=== PATIENT | female | born 1940 | race Caucasian/White ===

== ENCOUNTER 2020-11-29 15:23 | Outpatient (REF) | payer MEDICARE, SELFPAY ==
--- NOTE | ~2020-11-29 | CT_ITS ---
EXAMINATION: CT HEAD WITHOUT CONTRAST CLINICAL INFORMATION: Dementia. COMPARISON: Most recent brain CT dated 08/18/2016 TECHNIQUE: Contiguous axial imaging was performed from the skull base to vertex without intravenous administration of contrast. This CT examination was performed using dose optimization techniques as appropriate, variously including the following: *Automated exposure control *Adjustment of mA and/or kV according to patient size (this includes techniques or standardized protocols for targeted exams where dose is matched to indication/reason for exam; i.e. extremities or head) *Use of iterative reconstruction technique DLP: 658 mGy-cm FINDINGS: There is no evidence of acute intracranial hemorrhage or territorial infarction. No abnormal mass effect or midline shift is seen. Encephalomalacia of the left occipital lobe, new when compared to the prior CT with mild prominence of the adjacent left lateral ventricle posterior horn. 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 Larios to white matter differentiation is well preserved. No extra-axial fluid collections are identified. The ventricles are normal in size. There is no abnormal attenuation within the brain parenchyma. Redemonstration of a probable remote injury within the posterior right occipital cortex. No acute osseous abnormality. Unremarkable soft tissues. The mastoid air cells and visualized portions of the paranasal sinuses are well aerated. CT/CT head/brain wo con IMPRESSION: No acute intracranial hemorrhage or mass effect. There has been interval development of a chronic infarct with associated encephalomalacia within the left occipital lobe when compared to the head CT dated 08/18/2016.
== END 2020-11-29 15:24 | disposition home or self-care (01) ==
LOC: HO.CT 15:23
PROVIDERS: PCP Internal Medicine; Visit Provider Psychiatry & Neurology Neurology
DX: G31.84 Mild cognitive impairment of uncertain or unknown etiology (principal)
CPT/HCPCS: 70450

== ENCOUNTER 2020-12-07 15:59 | Outpatient (REF) | payer MEDICARE, SELFPAY ==
--- NOTE | ~2020-12-07 | XR_ITS ---
EXAMINATION: XR LUMBOSACRAL SPINE WITH OBLIQUES CLINICAL INFORMATION: Lumbar radiculopathy. COMPARISON: None TECHNIQUE: AP, lateral, coned-down, and bilateral oblique views of the lumbosacral spine. FINDINGS: There is loss of anterior vertebral body height at L1 with the anterior vertebral body measuring approximately 1.1 cm in height and the posterior vertebral body measuring approximately 2.3 cm in height. Findings are consistent with an age-indeterminate compression deformity. There is grade 1 anterolisthesis of L5 on S1 measuring approximately 0.7 cm in AP dimension with severe bilateral facet arthropathy at this level. Multilevel loss of intervertebral disc height with endplate osteophytes, most prominent at L5-S1. Atherosclerotic calcifications. Right pelvic surgical clips. XR/XR lumbar spine 4V min IMPRESSION: 1. Age indeterminant compression deformity at the anterior aspect of L1. 2. Grade 1 anterolisthesis of L5 on S1 with degenerative disc disease and severe bilateral facet arthropathy. 3. Additional mild multilevel degenerative disc disease.
== END 2020-12-07 16:00 | disposition home or self-care (01) ==
LOC: HO.XRAY 15:59
PROVIDERS: PCP Internal Medicine; Visit Provider Psychiatry & Neurology Neurology
DX: M54.16 Radiculopathy, lumbar region (principal); S32.009D Unspecified fracture of unspecified lumbar vertebra, subsequent encounter for fracture with routine healing
CPT/HCPCS: 72110

== ENCOUNTER 2025-02-23 13:19 | Outpatient (AMB) | payer MEDICARE, SELFPAY ==
--- NOTE | 2025-02-23 13:22 | MHC.OFFVIS ---
Intake Visit Reasons: MCI Accompanied by: Daughter Allergies lisinopril Allergy (Unknown, Verified 02/23/25 13:27) Unknown Medication List - Last Reconciled 02/23/25 by Johana Pop CNP amlodipine 10 mg PO DAILY donepezil 10 mg PO BEDTIME 90 days hydrochlorothiazide 25 mg PO DAILY memantine 5 mg PO BID 90 days metoprolol succinate ER 50 mg PO DAILY pantoprazole 40 mg PO DAILY sertraline 50 mg PO DAILY simvastatin 20 mg PO BEDTIME HPI Comments Details: She was living with her daughter. Memory was declining some. She was more forgetful and needed more reminders. She would forget that she showered and was showering twice a day. Her daughter got a white board and was writing down when she showered to remind her. Has trouble using TV remote and phone. She had alarm set to reminder to take medications, but she would sometimes ignore it and her daughter would have to remind her. She got THR which apparently went well, but did not remember. She needed to have other hip done at some point. Few minor falls. She could get upset and frustrated at times when she did not remember something or could not do something she used to do. Planning to start working with therapist next month. She enjoys doing word finds. Stopped driving around 2021. Has been living with her youngest daughter, Rose since around 2018. Slow progressive memory loss, especially since around 2019. Forgets appointments, to take medications, and is not as independent. Balance was okay, occasional wobble. Minor sciatica pain. History of lumbar spinal stenosis and sciatica for over 10 years. Short term memory problems. No dizziness on turning, getting up, or looking down. [facility] Medical History (Updated 02/23/25 @ 13:26 by Johana Pop CNP) Lumbar radiculopathy MCI (mild cognitive impairment) Review of Systems Const Denies chills, Denies daytime sleepiness, Denies difficulty sleeping, Denies fatigue, Denies fever(s), Denies frequent falls, Denies headache(s), Denies increased appetite, Denies poor appetite, Denies snoring, Denies weakness, Denies weight gain and Denies weight loss Eyes Denies loss of vision ENT Denies vertigo, Denies dizziness, Denies headache(s) and Denies neck pain Card Denies chest pain at rest, Denies chest pain with activity, Denies syncope, Denies leg edema, Denies palpitations, Denies dyspnea and Denies dyspnea on exertion Resp Denies cough, Denies dyspnea, Denies dyspnea on exertion and Denies snoring GI Denies abdominal pain, Denies constipation, Denies heartburn, Denies diarrhea and Denies nausea Denies urinary frequency, Denies urinary incontinence and Denies urinary urgency Musc Denies abnormal gait, Reports back pain, Denies myalgias, Denies arthralgias, Denies neck pain, Denies numbness and Denies tingling Neuro Denies abnormal gait, Denies vertigo, Denies dizziness, Denies syncope, Denies frequent falls, Denies headache(s), Denies lack of coordination, Denies loss of vision, Reports memory loss, Denies numbness, Denies Other visual disturbances, Denies restless legs, Denies seizure-like activity, Denies tingling, Denies paresthesias, Denies tremor(s) and Denies weakness Psych Denies anxiety, Denies depression, Denies auditory hallucinations, Reports memory loss and Denies visual hallucinations Endo Denies fatigue and Denies palpitations Physical Exam Const Other: General Appearance:? normal, in no acute distress. Heart:? S1, S2 normal, no murmurs. Lungs:? clear anteriorly and posteriorly. Musculoskeletal:? normal. Extremities:? no edema. Psych:? alert, as below. Neuro Other: Abnormal Neurological Findings:?MMSE 21/30. Mental Status: alert, as below. Cranial Nerves: Pupils are equal, round, and reactive to light. External ocular muscles are intact. Visual priest are full, no ptosis. Face is symmetrical, no facial weakness or droop. Facial sensations are normal. Tongue protrudes in midline. Palate elevates symmetrically. Shoulder shrugging is normal Motor Examination: Normal muscle tone, bulk and strength. No atrophy or fasciculations. No drift of the extended upper extremities. DTR 2+. Plantars are flexor. Sensory Exam: Normal light touch, temperature, pinprick, vibration, and joint-position sensations. Rhomberg sign is absent. Coordination: No ataxia. No titubation. Gait Exam: Within normal limits. Cerebellar Signs: [id number] is okay. Extrapyramidal System: No tremor, rigidity with normal facial expressions. No bradykinesia. No bradyphrenia. Normal arm swing and posture. No propulsion or retropulsion. Speech: Normal. MMSE Level of Consciousness: Alert. Orientation: Knows month and season. Does not know correct year, date, or day. Knows correct city, county and state. Knows correct location and floor. Registration: Able to register 3 objects. Attention: Serial 7's performed accurately to 93. Recall: Able to recall 1 out of 3 objects with help. Language: Normal spontaneous speech, fluency, repetition, naming, comprehension, reading, and writing. Total Score: 21/30. Results Reviewed Results Reviewed: 11/10/20 EEG- WNL CT brain shows old left occipital encephalomalacia and probable old right occipital encephalomalacia. Assessment & Plan Assessment & Plan (1) MCI (mild cognitive impairment): Code(s): G31.84 - Mild cognitive impairment of uncertain or unknown etiology Category: Medical Plan: Continue donepezil 10mg 1 tablet at bedtime. Increase memantine 10mg 1 tablet twice a day. Stay physically and socially active. Follow up in 3 months or sooner as needed. Medications: New memantine (Namenda) 10 mg PO BID 180 tabs 1RF 90 days Refilled donepezil 10 mg PO BEDTIME 90 tabs 1RF 90 days Discontinued memantine Discontinued Reason: Doctor's Order 5 mg PO BID 90 days 180 tabs 0RF Coding Level of Care Code Est Pt Level 4 (09178) Diagnoses MCI (mild cognitive impairment) G31.84
--- OUTSIDE RECORDS SUMMARY | 2025-02-23 15:22 | XMS_ITS | Clinical Summary ---
Author Organization [facility] [address] [place] [address] [place] [phone] Phone Care Team Providers Care Ship Rigger Name Role Phone Zoila Gunter MD Primary Care Prov ider Allergies Active Allergy Reactions Criticality Noted Date Comments Gluten Unknown 08/04/2024 Celiac disease Lisinopril 07/17/2018 No reaction documented. Cough Medications donepeziL (ARICEPT) 10 mg tablet Take 1 tablet (10 mg total) by mouth at bedtime. Active calcium carbonate (CALCIUM ORAL) Take by mouth daily. Active multivit-min/fo lic acid/lutein (CENTRUM SILVER ORAL) daily Active acetaminophen (TYLENOL) 500 mg tablet Take 2 tablets (1,000 mg total) by mouth every 8 (eight) hours. 30 tablet 04/04/2024 Active memantine (NAMENDA) 5 mg tablet Take 1 tablet (5 mg total) by mouth 2 (two) times a day. 07/22/2024 Active pantoprazole (PROTONIX) 40 mg EC tablet Take 1 tablet (40 mg total) by mouth 1 (one) time each day before breakfast. Do not crush, chew, or split. 42 tablet 08/05/2024 Active amLODIPine (NORVASC) 10 mg tablet TAKE 1 TABLET BY MOUTH EVERY DAY 90 tablet 1 09/19/2024 Active sertraline (ZOLOFT) 50 mg tablet TAKE 1 TABLET BY MOUTH EVERY DAY 90 tablet 1 12/08/2024 Active simvastatin (ZOCOR) 20 mg tablet TAKE 1 TABLET BY MOUTH EVERYDAY AT BEDTIME 90 tablet 1 12/22/2024 Active hydroCHLOROthia zide (HYDRODIURIL) 25 mg tablet TAKE 1 TABLET BY MOUTH EVERY DAY 90 tablet 1 12/22/2024 Active famotidine (PEPCID) 20 mg tablet TAKE 1 TABLET BY MOUTH TWICE A DAY 180 tablet 1 12/31/2024 Active metoprolol succinate (TOPROL-XL) 50 mg 24 hr tablet TAKE 1 TABLET BY MOUTH EVERY DAY 90 tablet 1 01/05/2025 Active Active Problems Problem Noted Date Diagnosed Date Primary osteoarthritis of left hip 02/05/2025 Medical orders for life-sust aining treatment (MOLST) form in chart 12/15/2024 Overview (12/15/2024): MOLST form completed 12/15/2024 Cardiopulmonary resuscitation - do not resuscitate Ventilation for a patient in respiratory distress - do not intubate or ventilate Transfer to hospital -transfer to hospital Dialysis - undecided Artificial nutrition - undecided Artificial hydration - use artificial hydration Assessment & Plan (12/15/2024 2:01 PM EDT): Confirmed with patient DNR/DNI. Molst form in the chart. S/P total hip arthroplasty 08/04/2024 Adnexal mass 12/18/2022 Overview (01/07/2024): CT ABD & PELVIS W/CONTRAST Result Date: 12/15/2022 IMPRESSION IMPRESSION: 6.2 cm cystic lesion in the right adnexa without solid enhancing components. This corresponds with the finding on MRI. Left 9th and 10th rib fracture deformities which have acute appearance. Associated trace left pleural effusion. Colonic diverticulosis. POS - [id number] Assessment & Plan (12/15/2024 2:01 PM EDT): Right pelvic cyst. Previously referred to [facility] for evaluation but not seen yet. Unable to get an appt. Will place a new referral. Orders: Ambulatory referral to Obstetrics / Gynecology; Future CBC and differential; Future Other chest pain 08/09/2022 Overview (01/07/2024): Last Assessment & Plan: As I noted she has had this discomfort in her chest for quite some time but seems to progressively becoming worse. The exact etiology is not clear. Certain aspects are concerning for ischemic heart disease. Given the fact that her symptoms seem to come on so easily I spoke to her about undergoing a cardiac catheterization. I discussed the indication of the procedure and the procedure itself. I did discuss some, but not all possible findings include likely be no significant coronary disease, coronary disease requiring medical therapy angioplasty or bypass surgery. Also told her that there was no significant coronary disease we will consider a PET stress to exclude microvascular angina. I did discuss some, but not all possible risk including , OR, CVA, damage to artery, arrhythmia infection allergy to the dye. I discussed the alternatives which would be a stress test. I did discuss a regadenoson PET stress but also a treadmill nuclear stress. After some discussion we are going to proceed with nuclear stress test. I did tell her if she had any discomfort lasting over 15 minutes want to call 911. We will hold the metoprolol the day of the test. Shortness of breath on exertion 08/09/2022 Overview (01/07/2024): Last Assessment & Plan: Etiology is unclear. On exam her lungs are clear. She did have an echocardiogram as I noted in November when she was in the hospital at that time her LV systolic function was normal. Did have grade II diastolic dysfunction. There is no mention of the left atrial pressure was increased. Although the estimated PA pressure was normal at rest. She does have valvular disease but nothing that would account for her breathlessness. I did place an order for PFTs. She could have diastolic dysfunction which worsens with exercise as a cause for shortness of breath we will be starting out for a nuclear stress test first to see what that shows. Abnormal EKG 08/07/2022 Snoring 05/02/2019 Overview (01/07/2024): 04/2019 Home Sleep Study did not reveal sleep apnea or nocturnal hypoxia. 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 Patient is compliant with her medications. Currently on amlodipine 10, hydrochlorothiazide 25 mg. No side effects. Will continue same medications. Hyperlipidemia 04/26/2009 Assessment & Plan (12/15/2024 2:01 PM EDT): Currently on Simvastatin, last LDL 61 last year. Will recheck a lipid profile. Continue same medication. MADHU (obstructive sleep apnea) 04/26/2009 Overview (01/07/2024): On CPAP since last year Osteoporosis 04/26/2009 Overview (01/07/2024): History of compression or fracture on the Lumbar Spine Resolved Problems Problem Noted Date Diagnosed Date Resolved Date Primary osteoarthritis of right hip 06/19/2024 08/21/2024 Encounters Date Type Department Care Team Description 02/05/2025 10:30 AM EST Office Visit Orthopedic Surgery [address] [phone] Hernandez Vanegas MD Status post total replacement of right hip (Primary Dx); Postoperative examination; Primary osteoarthritis of left hip; MCI (mild cognitive impairment) with memory loss 01/01/2025 Telephone Adult Medicine [address] [phone] Zoila Gunter MD 12/15/2024 11:30 AM EDT Office Visit Adult Medicine [address] [phone] Zoila Gunter MD Encounter for annual general medical examination with abnormal findings in adult (Primary Dx); Primary hypertension; Mixed hyperlipidemia; Adnexal mass; Skin lesion; Need for prophylactic vaccination and inoculation against influenza; Advance care planning; Medical orders for life-sustaining treatment (MOLST) form in chart 12/15/2024 Results Follow-Up Adult Medicine [address] [phone] Zoila Gunter MD from Last 3 Months Immunizations Immunization Administration Dates Next Due H1N1 Inj Preservative Free 04/26/2009 Influenza trivalent, 0.5mL ( Fluad) 65yo and older 12/15/2024,11/26/2023,11/22/2022,11/02,12/06/2020,12/18/2018,12/12/2017 ,12/12/2015,11/28/2011,11/14/2010,10/28 Influenza trivalent, 0.5mL, preservative free (Fluarix; FluLaval; Fluzone) ages 6mo and older (Afluria) 3 years and older 12/07/2012 Pneumococcal conjugate 13 va lent (Prevnar 13, PCV13) 2mo and older 02/07/2016 Pneumococcal polysaccharide 23 valent (Pneumovax 23) 2yo and older 08/04/2009 Td Tetanus diptheria (Tdvax) 7yo and older 11/22/2022,02/07/2012 Tdap Tetanus diptheria acell ular pertussis (Boostrix; Adacel) 7yo and older 01/03/2006 Zoster Live 08/11/2009 Surgical History Surgery Date Site/Laterality Comments HYSTERECTOMY PROCEDURE: HISTORICAL HYSTERECTOMY APPENDECTOMY 2005 PROCEDURE: HISTORICAL APPENDECTOMY COLONOSCOPY PROCEDURE: IN COLONOSCOPY STOMA DX INCLUDING COLLJ SPEC SPX; COMMENT: normal on 05/12/2008 Dr Rizvi OTHER SURGICAL HISTORY 1994 Left PROCEDURE: RADICAL REMOVAL OF BREAST; COMMENT: for Breast Cancer; 2000 reconstruction CARPAL TUNNEL RELEASE Right PROCEDURE: HISTORICAL CARPAL TUNNEL REL BREAST BIOPSY 1994 Left PROCEDURE: BX BREAST; PERC NEEDLE CORE W/IMAG GUID; COMMENT: lt. breast ca BREAST SURGERY 1994 Left PROCEDURE: IN UNLISTED PROCEDURE BREAST; COMMENT: s/p lt. mast. 1994 TAMOXIFEN X 5 YRS Medical History Medical History Date Comments Hyperlipidemia 04/26/2009 DX:Hyperlipidemi a Dementia (CMS/HCC V24, CMS/HCC V28) 05/24/2009 DX:Dementia (HCC) Chronic low back pain 07/17/2018 DX:Chronic low back pain Vitamin D deficiency 07/17/2018 DX:Vitamin D deficiency DDD (degenerative disc disea se), cervical 07/17/2018 DX:DDD (degenerative disc di sease), cervical CD (celiac disease) 04/26/2009 DX:CD (jewel c disease) Cerebral microvascular disease 11/16/2009 D X:Cerebral microvascular disease Depression 04/26/2009 DX:Depression GERD (gastroesophageal reflu x disease) 04/26/2009 DX:GERD (gastroesophageal re flux disease); COMMENT: The patient is on Nexium AM and Omeprezole PM. Recommended by BOBBY Rizvi. Has had EGD and colonsocopies with Jono. Also has chronic constipation History of breast cancer 04/26/2009 DX:Hist ory of breast cancer; COMMENT: H/o left mastectomy in 1994, Negative lymp nodes. No radiation, no chemotherapy. 5 years of tamoxifen HTN (hypertension) 04/26/2009 DX:HTN (hyper tension) MADHU (obstructive sleep apnea) 04/26/2009 DX :MADHU (obstructive sleep apnea); COMMENT: On CPAP since last year Osteoporosis 04/26/2009 DX:Osteoporosis; COMMENT: History of compression or fracture on the Lumbar Spine Historical Medical DX 09/23/2012 DX:Pulmona ry nodule; COMMENT: Incidental finding on CT of the chest done at [facility] in September 09, 2012. Right middle lobe nodularity was described possibly infectious or inflammatory. No CT angiographic evidence of thoracoabdominal aortic dissection. CT scan was done for the workup of atypical chest discomfort. Spinal stenosis 04/05/2012 DX:Spinal stenos is Memory problem 09/03/2018 DX:Memory proble m Personal history of malignan t neoplasm of breast DX:Personal history of malig nant neoplasm of breast; COMMENT: lt mastectomy 1994 Celiac disease 04/26/2009 DX:Celiac diseas e Spinal stenosis of lumbar re gion with radiculopathy 04/05/2012 DX:Spinal stenosis of lumbar region with radiculopathy Adnexal mass 12/18/2022 DX:Adnexal mass; COMMENT: CT ABD & PELVIS W/CONTRAST Result Date: 12/15/2022 IMPRESSION IMPRESSION: 6.2 cm cystic lesion in the right adnexa without solid enhancing components. This corresponds with the finding on MRI. Left 9th and 10th rib fracture deformities which have acute appearance. Associated trace left pleural effusion. Colonic diverticulosis. POS - [id number] Social History Tobacco Use Types Packs/Day Years Used Date Smoking Tobacco: Never Smokeless Tobacco: Never Tobacco Cessation:Counseling Given: Not Answered Alcohol Use Standard Drinks/Week Comments No 0 (1 standard drink = 0.6 oz pur e alcohol) Housing Instability Answer Date Recorde d Are you worried that in the next 2 months you may not have stable housing? No 12/15/2024 Food Access & Nutrition Answer Date Rec orded Do you have access to a vari ety of food including fruits and vegetables? Yes 12/15/2024 Access to Healthcare Answer Date Record ed Within the last 3 months, ho w many times did you visit the emergency department for your medical care? 0 12/15/2024 Health Literacy Answer Date Recorded How often do you need to hav e someone help you when you read instructions, pamphlets, or other written material from your doctor or pharmacy? Never 12/15/2024 Caregiver: How often do you need to have someone help you when you read instructions, pamphlets, or other written material from your doctor or pharmacy? Not on file 12/15/2024 Financial Risk Answer Date Recorded How hard is it for you to pa y for the very basics like food, housing, medical care, and air conditioning / heating? Not very hard 12/15/2024 Transportation Answer Date Recorded Has the lack of transportati on kept you from meetings, work, or from getting things needed for daily living? No Has the lack of transportati on kept you from medical appointments or from getting medications? No 12/15/2024 Social Isolation Answer Date Recorded How often do you feel lonely or isolated from those around you? Sometimes 12/15/2024 Food Risk Answer Date Recorded Within the past 12 months we worried whether our food would run out before we got money to buy more. Never true 12/15/2024 Within the past 12 months th e food we bought just didn't last and we didn't have money to get more. Never true 12/15/2024 Dependent Care Answer Date Recorded Do you need help finding or paying for care for your loved ones. For example, child care attendant school or elderly care for an older adult? No 12/15/2024 Education Answer Date Recorded Do you think completing more education or training, like finishing a GED, going to college, or learning a trade, would be helpful for you? N/A 12/15/2024 Employment and Income Answer Date Recor ded During the last four weeks, have you been actively looking for work? No 12/15/2024 Living Situation Answer Date Recorded What is your living situation? Unrecognized valu e 12/15/2024 Interpersonal Safety Answer Date Record ed Physical Abuse Unrecognized value 09/02/2024 Verbal Abuse Unrecognized value 09/02/2024 Comments No Sex and Gender Information Value Date Recorded Sex Assigned at Not on file Legal Sex Female 8:35 AM EST Gender Identity Not on file Sexual Orientation Not on file Last Filed Vital Signs Vital Sign Reading Time Taken Comments Blood Pressure 108/50 12/15/2024 11:31 AM EDT Pulse 55 12/15/2024 11:31 AM EDT Temperature 36.7 C (98.1 F) 12/15/2024 11:31 AM EDT Respiratory Rate 14 12/15/2024 11:31 AM EDT Oxygen Saturation 95% 12/15/2024 11:31 AM EDT Inhaled Oxygen Concentration - - Weight 50.4 kg (111 lb 3.2 oz) 12/15/2024 11:31 AM EDT Height 144.8 cm (4' 9 ) 12/15/2024 11:31 AM EDT Body Mass Index 24.06 12/15/2024 11:31 AM EDT Plan of Treatment Upcoming Encounters Date Type Department Care Team (Late st Contact Info) Description 06/15/2025 1:00 PM EDT Office Visit Adult Medicine [address] [phone] Leena Martin PA [address] [place], [place] 08/06/2025 11:00 AM EDT Office Visit Orthopedic Surgery [place] [phone] [phone] Hernandez Vanegas MD [address] [address] Health Maintenance Due Date Last Done Comments Zoster Vaccines (2 of 3) 10/06/2009 08/11/2009 RSV Immunization Adult Patients (1 - 1-dose 75+ series) 2014 Osteoporosis Screening (Bone Density Screening) 02/04/2022 01/31/2019 COVID-19 Vaccine (2024- season) 2024 12/06/2020, 04/23/2020, 04/02/2020 Hypertension/CHF/CAD Annual BMP Blood Test 08/05/2025 08/05/2024, 08/04/2024, 06/23/2024, Additional history exists Falls Risk Assessment 12/15/2025 12/15/2024 , 12/15/2024, 09/02/2024, Additional history exists Medicare Annual Wellness Visit 12/15/2025 12/15/2024, 11/26/2023 Social Influencers of Health Screening 12/15/2025 12/15/2024, 06/12/2024 Cholesterol Screening (Lipid Panel) 11/23/2027 11/22/2022 DTaP,Tdap,and Td Vaccines (4 - Td or Tdap) 11/22/2032 11/22/2022, 02/07/2012, 01/03/2006 Pneumococcal Vaccine: 50+ Years Completed 02/07/2016, 08/04/2009 Depression Screening Completed 12/15/2024 Influenza Vaccine Completed 12/15/2024, , 11/22/2022, Additional history exists HIB Vaccines Aged Out No longer eligi ble based on patient's age to complete this topic HPV Vaccines Aged Out No longer eligi ble based on patient's age to complete this topic Hepatitis A Vaccines Aged Out No long er eligible based on patient's age to complete this topic Hepatitis B Vaccines Aged Out No long er eligible based on patient's age to complete this topic IPV Vaccines Aged Out No longer eligi ble based on patient's age to complete this topic MMR Vaccines Aged Out No longer eligi ble based on patient's age to complete this topic Meningococcal ACWY Vaccine Aged Out N o longer eligible based on patient's age to complete this topic Meningococcal B Vaccine Aged Out No l onger eligible based on patient's age to complete this topic RSV Immunization Patients Under 20 months Aged Out No longer eligible based on patient's age to complete this topic Varicella Vaccines Aged Out No longer eligible based on patient's age to complete this topic Medical Devices Implanted Type Area Floorworker Distributor Device Identifier Shelf Expiration Date Model / Serial / Lot Cement Bone Simplex Full Dose - Sn/A - [id number] Implanted:Qty: 2 on 08/04/2024 by Hernandez Vanegas MD at [facility] Bone Cement Right: Hip [employer] 12/26/2026 6191-1-00 1 / N/A / [id number] Tritanium Cluster Hole Shell 48mm - Sn/A - [id number] Implanted:Qty: 1 on 08/04/2024 by Hernandez Vanegas MD at [facility] Joints Hip Right: Hip [employer] 04/17/2029 702-04-48 D / N/A / [id number] Liner Trident X3 0 Deg 36mm 3.9mm Sz D - Sn/A - [id number] Implanted:Qty: 1 on 08/04/2024 by Hernandez Vanegas MD at [facility] Joints Hip Right: Hip [employer] 03/23/2029 723-00-36 D / N/A / [id number] Lp Hex Screw 6.5x30mm - Sn/A - [id number] Implanted:Qty: 1 on 08/04/2024 by Hernandez Vanegas MD at [facility] [employer]s Hip Right: Hip [employer] 04/03/2029 8691-7350 / N/A / [id number] Lp Hex Screw 6.5x20mm - Sn/A - [id number] Implanted:Qty: 1 on 08/04/2024 by Hernandez Vanegas MD at [facility] Joints Hip Right: Hip [employer] 02/03/2029 [id number] / N/A / [id number] Hip Stm Kumar 127 #2 30/124 - Snone - [id number] Implanted:Qty: 1 on 08/04/2024 by Hernandez Vanegas MD at [facility] Joints Hip Right: Hip [employer] 09/06/2027 9085-6691 D / NONE / [id number] Hip Spacr Distl Univ 9mm - Snone - [id number] Implanted:Qty: 1 on 08/04/2024 by Hernandez Vanegas MD at [facility] Joints Hip Right: Hip [employer] 03/03/2029 [id number] / NONE / [id number] Hip Head Delta Katerine 36mm 0 - Snone - [id number] Implanted:Qty: 1 on 08/04/2024 by Hernandez Vanegas MD at [facility] Joints Hip Right: Hip [employer] 02/09/2029 6570-0-13 6 / NONE / [id number] Procedures Procedure Name Priority Date/Time Associated Diagnosis Comments XR HIP 2-3 VIEWS RIGHT Routine 02/05/2025 10:41 AM EST Postoperative examination Status post total replacement of right hip CBC WITH AUTO DIFFERENTIAL Routine 12/15/2024 12:14 PM EDT Adnexal mass CBC AND DIFFERENTIAL Routine 12/15/2024 12:14 PM EDT Adnexal mass BASIC METABOLIC PANEL Routine 08/05/2024 5:03 AM EDT LIPID PANEL Routine 11/22/2022 DXA BONE DENSITY STUDY 1+ SITS AXIAL SKEL Routine 01/31/2019 2:03 PM EST Age-related osteoporosis without current pathological fracture from Last 3 Months or Most Recently Relevant to Health Maintenance Results * XR Hip 2-3 Views Right (02/05/2025 10:41 AM EST) Anatomical Region Laterality Modality Lower Extremities, Hip Right Computed Radiography Narrative 02/06/2025 5:43 PM EST 3 views of the right hip obtained today including AP pelvis, AP and crosstable lateral hip were reviewed. These show right hybrid total hip replacement with cemented femoral stem and cementless acetabular shell. Implants appear well-fixed and well position. Slight increase in femoral stem and varus compared to prior x-rays, however femur is rotated compared to prior x-rays due to difference in profile of the lesser trochanter. No obvious changes in stem rotation on the crosstable lateral. Left hip does show moderate severe degenerative changes including near complete joint space narrowing, moderate marginal space, subchondral sclerosis. Joint space narrowing has progressed from prior x-rays obtained 06/19/24. us Hernandez Vanegas MD IMG XR PROCEDURES Fin al Result * (ABNORMAL) CBC auto differential (12/15/2024 12:14 PM EDT) WBC 6.7 4.8 - 10.8 K/mcL LAB HEMETOLOGY METHOD 12/15/2024 2:36 PM EDT [facility] RBC 4.50 3.80 - 4.80 M/mcL LAB HEMETOLOGY METHOD 12/15/2024 2:36 PM EDT [facility] Hemoglobin 11.0(L) 11.5 - 16.0 g/dL LAB HEMETOLOGY METHOD 12/15/2024 2:36 PM EDT [facility] Hematocrit 35.7 35.0 - 47.0 % LAB HEMETOLOGY METHOD 12/15/2024 2:36 PM EDT [facility] MCV 79.9 79.0 - 98.0 FL LAB HEMETOLOGY METHOD 12/15/2024 2:36 PM EDT [facility] MCH 24.6(L) 27.0 - 32.0 pcg LAB HEMETOLOGY METHOD 12/15/2024 2:36 PM EDT [facility] MCHC 30.8(L) 32.0 - 37.0 g/dL LAB HEMETOLOGY METHOD 12/15/2024 2:36 PM EDT [facility] RDW 15.5(H) 11.0 - 15.0 % LAB HEMETOLOGY METHOD 12/15/2024 2:36 PM EDT [facility] Platelets 263 130 - 400 K/mcL LAB HEMETOLOGY METHOD 12/15/2024 2:36 PM EDT [facility] MPV 10.7 7.0 - 11.0 FL LAB HEMETOLOGY METHOD 12/15/2024 2:36 PM EDT [facility] NRBC 0.0 <1.0 % LAB HEMETOLOGY METHOD 12/15/2024 2:36 PM EDT [facility] NRBC Absolute 0.00 <0.10 K/mcL LAB HEMETOLOGY METHOD 12/15/2024 2:36 PM EDT [facility] Neutrophils Relative 57.3 % LAB HEMETOLOGY METHOD 12/15/2024 2:36 PM EDT [facility] Lymphocytes Relative 27.8 % LAB HEMETOLOGY METHOD 12/15/2024 2:36 PM EDT [facility] Monocytes Relative 12.7 % [facility] Eosinophils Relative 1.2 % LAB HEMETOLOGY METHOD 12/15/2024 2:36 PM EDT [facility] Basophils Relative 0.7 % LAB HEMETOLOGY METHOD 12/15/2024 2:36 PM EDT [facility] Immature Granulocytes Relative 0.3 % LAB HEMETOLOGY METHOD 12/15/2024 2:36 PM EDT [facility] Neutrophils Absolute 3.84 1.50 - 7.00 K/mcL LAB HEMETOLOGY METHOD 12/15/2024 2:36 PM EDT [facility] Lymphocytes Absolute 1.86 1.00 - 5.00 K/mcL LAB HEMETOLOGY METHOD 12/15/2024 2:36 PM EDT [facility] Monocytes Absolute 0.85 0.20 - 1.00 K/[facility] LAB HEMETOLOGY METHOD 12/15/2024 2:36 PM EDT [facility] Eosinophils Absolute 0.08 0.00 - 0.50 K/[facility] LAB HEMETOLOGY METHOD 12/15/2024 2:36 PM EDT [facility] Basophils Absolute 0.05 0.00 - 0.20 K/[facility] LAB HEMETOLOGY METHOD 12/15/2024 2:36 PM EDT [facility] Immature Granulocytes Absolute 0.02 0.00 - 0.03 K/[facility] LAB HEMETOLOGY METHOD 12/15/2024 2:36 PM EDT [facility] Blood Venous blood specimen / Unknown Venipuncture / Unknown 12/15/2024 12:14 PM EDT 12/15/2024 12:14 PM EDT us Zoila Gunter MD LAB BLOOD ORDERABL ES Final Result [facility] [address] [place] [address], * Basic metabolic panel (08/05/2024 5:03 AM EDT) Sodium 134 133 - 145 mmol/L LAB CHEMISTRY METHOD 08/05/2024 7:30 AM EDT [facility] Potassium 3.5 3.5 - 5.5 mmol/L LAB CHEMISTRY METHOD 08/05/2024 7:30 AM [facility] Chloride 98 96 - 110 mmol/L LAB CHEMISTRY METHOD [facility]/05[facility]24 7[facility] CO2 27 21 - 32 mmol/L LAB CHEMISTRY METHOD 08/05/2024 7:30 AM EDT [facility] Anion Gap 9 3 - 11 LAB CHEMISTRY METHOD 08/05/2024 7:30 AM EDT [facility] Glucose 83 70 - 100 mg/dL LAB CHEMISTRY METHOD 08/05/2024 7:30 AM EDT [facility] BUN 13 5 - 25 mg/dL LAB CHEMISTRY METHOD 08/05/2024 7:30 AM [facility] Creatinine 0.89 0.50 - 1.10 mg/dL LAB CHEMISTRY METHOD 08/05/2024 7:30 AM EDT [facility] eGFR 64 >=60 mL/min/1. 73m2 LAB CHEMISTRY METHOD 08/05/2024 7:30 AM EDT [facility] Comment:Calculation based on the Chronic Kidney Disease Epidemiology Collaboration (CKD-EPI) equation refit without adjustment for race. BUN/Creatinine Ratio 14.6 LAB CHEMISTRY METHOD 08/05/2024 7:30 AM [facility] Calcium 8.8 8.5 - 10.5 mg/dL LAB CHEMISTRY METHOD 08/05/2024 7:30 AM [facility] Blood Venous blood specimen / Unknown Venipuncture / Unknown 08/05/2024 5:03 AM EDT 08/05/2024 6:26 AM EDT Jesika BRIAN LAB BLOOD ORDERABLES Final Resul t [facility] [address] [place] [address], * (ABNORMAL) Lipid panel (11/22/2022) LDL/HDL Ratio 2 0 - 4 Triglycerides 185(A) 0 - 150 mg/dL Cholesterol 174 0 - 200 mg/dL HDL 76 >=40 mg/dL LDL Cholesterol 61 0 - 100 mg/dL Blood Venous blood specimen / Unknown Historical Provider LAB BLOOD ORDERABLES Melania l Result * DXA BONE DENSITY STUDY 1+ SITS AXIAL SKEL (01/31/2019 2:03 PM EST) Anatomical Region Laterality Modality Bone Densitometr y 12/18/2018 2:28 PM EDT Narrative 01/31/2019 2:35 PM EST BONE DENSITY Lumbar Spine T-score is -2.6 (SD relative to 20-29 y/o adult) Z-score is +0.2 (SD relative to age matched peers) This is consistent with osteoporosis by criteria defined by the WHO. Left Hip T-score is -2.2 Z-score is -0.1 This is consistent with osteopenia by criteria defined by the WHO. An L-1 compression deformity is noted on the lateral spline view. Impression: Based on the World Health Organization criteria, Salvatore Cruz should be classified as having osteoporosis. The [facility] Department of Internal Medicine recommends using National Osteoporosis Foundation (NOF) guidelines in treatment decisions related to osteoporosis. NOF guidelines suggest considering treatment for postmenopausal women and men aged 50 or older presenting with the following: History of hip or vertebral fracture. T-score less than or equal to -2.5 (DXA) at the femoral neck, total hip, or spine, after appropriate evaluation to exclude secondary causes. Low bone mass (T-score between -1.0 and -2.5 at the femoral neck or spine) AND a 10-year probability of a hip fracture greater than or equal to 3% OR a 10-year probability of a major osteoporosis-related fracture greater than or equal to 20% based on the [place]-adapted WHO algorithm Please note that all treatment decisions require clinical judgment and consideration of individual patient factors, including patient preferences, co-morbidities, previous drug use, risk factors not captured in the FRAX model (e.g., frailty, falls, vitamin D deficiency, increased bone turnover, interval significant decline in bone density) and possible under- or over-estimation of fracture risk by FRAX. Procedure Note Drew Church - 02/14/2022 BONE DENSITY Lumbar Spine T-score is -2.6 (SD relative to 20-29 y/o adult) Z-score is +0.2 (SD relative to age matched peers) This is consistent with osteoporosis by criteria defined by the WHO. Left Hip T-score is -2.2 Z-score is -0.1 This is consistent with osteopenia by criteria defined by the WHO. An L-1 compression deformity is noted on the lateral spline view. Impression: Based on the World Health Organization criteria, Salvatore Cruz shouldbe classified as having osteoporosis. The [facility] Department of Internal Medicine recommendsusing National Osteoporosis Foundation (NOF) guidelines in treatmentdecisions related to osteoporosis. NOF guidelines suggest consideringtreatment for postmenopausal women and men aged 50 or older presentingwith the following: History of hip or vertebral fracture. T-score less than or equal to -2.5 (DXA) at the femoral neck, total hip,or spine, after appropriate evaluation to exclude secondary causes. Low bone mass (T-score between -1.0 and -2.5 at the femoral neck or spine)AND a 10-year probability of a hip fracture greater than or equal to 3% ORa 10-year probability of a major osteoporosis-related fracture greaterthan or equal to 20% based on the [place]-adapted WHO algorithm Please note that all treatment decisions require clinical judgment andconsideration of individual patient factors, including patientpreferences, co-morbidities, previous drug use, risk factors not capturedin the FRAX model (e.g., frailty, falls, vitamin D deficiency, increasedbone turnover, interval significant decline in bone density) and possibleunder- or over-estimation of fracture risk by FRAX. Leena BRIAN IMG DXA PROCEDURES Final Result from Last 3 Months or Most Recently Relevant to Health Maintenance Insurance [employer] Advance Directives Documents on File Type Date Recorded Patient Casino Floor Supervisor Expl anation Health Care Decision (hx) 12/03/2021 AD RAYMUNDO DIRECTIVE Health Care Decision (hx) 12/03/2021 AD RAYMUNDO DIRECTIVE Health Care Decision (hx) 12/03/2021 AD RAYMUNDO DIRECTIVE Health Care Decision (hx) 12/03/2021 AD RAYMUNDO DIRECTIVE Health Care Decision (hx) 12/03/2021 AD RAYMUNDO DIRECTIVE Health Care Decision (hx) 12/03/2021 AD RAYMUNDO DIRECTIVE Health Care Decision (hx) 12/03/2021 AD RAYMUNDO DIRECTIVE Health Care Decision (hx) 12/03/2021 AD RAYMUNDO DIRECTIVE * No CPR/Do Not Intubate (Latest Code Status on File) Date Activated Date Inactivated Comments 12/15/2024 12:[address] atus was ascertained in the following way: Code status discussion: discussion with patient To update the patient's code status, place a code status order. Do not modify or discontinue any currently active code status orders. * Full Code - Default Date Activated Date Inactivated Comments 08/04/2024 9:10 AM 08/05/2024 2:33 PM This is order is used when code status has not been discussed with the patient, or code status is otherwise unknown/unconfirmed To update the patient's code status, place a code status order. Do not modify or discontinue any currently active code status orders. Care Teams Ship Rigger Relationship Specialty Start Date End Date Zoila Gunter MD [address] [place] [phone] PCP - General Internal Medicine 09/26/21
--- OUTSIDE RECORDS SUMMARY | 2025-02-23 15:22 | XMS_ITS | Clinical Summary ---
Author Organization [facility] Prior to 07/26/[address] [place] [address] Care Team Providers Care Air Export Agent Name Role Phone Zoila Dejesus MD Primary Care Prov ider Allergies Active Allergy Reactions Criticality Noted Date Comments Lisinopril 12/14/2022 Cough Medications Medication Sig Dispensed Refills Start Date End Date Status simvastatin (ZOCOR) tablet 20 mg Take 1 tablet (20 mg total) by mouth every night at bedtime. 0 Active amLODIPine (NORVASC) tablet 5 mg Take 1 tablet (5 mg total) by mouth daily. 0 Active donepezil (ARICEPT) 10 MG tablet Take 1 tablet (10 mg total) by mouth every night at bedtime. 0 Active sertraline (ZOLOFT) 50 MG tablet Take 1 tablet (50 mg total) by mouth daily. 0 Active hydroCHLOROthiazide (HYDRODIURIL) tablet 25 mg Take 1 tablet (25 mg total) by mouth daily. 0 Active metoprolol succinate (TOPROL-XL) 24 hr tablet 50 mg Take 1 tablet (50 mg total) by mouth daily. 0 Active Active Problems No known active problems Family History Relation Name Status Comments Father Mother Social History Tobacco Use Types Packs/Day Years Used Date Smoking Tobacco: Never Smokeless Tobacco: Never Tobacco Cessation:Counseling Given: Not Answered Alcohol Use Standard Drinks/Week Comments Never 0 (1 standard drink = 0.6 oz pur e alcohol) Sex and Gender Information Value Date Recorded Sex Assigned at Not on file Gender Identity Not on file Sexual Orientation Not on file Job Start Date Occupation Industry Not on file Not on file Not on file Last Filed Vital Signs Vital Sign Reading Time Taken Comments Blood Pressure 146/46 01/04/2023 2:15 PM EST Pulse 53 01/04/2023 2:15 PM EST Temperature 36.7 C (98 F) 01/04/2023 2:15 PM EST Respiratory Rate - - Oxygen Saturation 98% 01/04/2023 2:15 PM EST Inhaled Oxygen Concentration - - Weight 49.7 kg (109 lb 9.6 oz) 01/04/2023 2:15 P M EST Height 148.6 cm (4' 10.5 ) 01/04/2023 2:15 PM ES T Body Mass Index 22.52 01/04/2023 2:15 PM EST Plan of Treatment Health Maintenance Due Date Last Done Comments Depression Screening 1951 Preventative Health Evaluation 1957 Shingrix-Zoster Vaccine (1 of 2) 1989 Fall Risk Assessment 2004 Osteoporosis Screening (DEXA Scan) 2004 RSV Adult > 60+ Yrs or (1 - 1-dose 75+ series) 2014 DTap / Tdap / Td (2 - Td or Tdap) 01/04/2016 01/03/2006 COVID-19 Vaccine (2024- season) 2024 12/06/2020, 04/23/2020, 04/02/2020 Influenza Vaccine (#1) 2024 3, 11/02/2021, 12/06/2020, Additional history exists Pneumococcal Vaccine Completed 02/07/2016, 08/05/19 10 Hepatitis B Vaccines Aged Out No long er eligible based on patient's age to complete this topic RSV Ped < 20 months Aged Out No longe r eligible based on patient's age to complete this topic Care Teams Air Export Agent Relationship Specialty Start Date End Date Zoila Dejesus MD [address] [place] [id number] PCP - General Internal Medicine 12/08/22
--- OUTSIDE RECORDS SUMMARY | 2025-02-23 15:22 | XMS_ITS | Data Portability ---
Author Organization [facility], PAIN OFFICE Address [address] [place] [address] Care Team Providers Care Sales Effectiveness Manager Name Role Phone SYDNEELILIANA Primary Care Provider [phone] Assessment Encounter Date Assessment Date Assessment LastModified by Organization Details LastModified Time 10/12/2015 10/12/2015 Bernadette dyson is a 75 year old woman with low back pain radiating occasionally into the right lower extremity. On exam ,she has pain on flexion. MRI Lumbar spine shows moderate L1 compression fracture, and multilevel degenerative changes of the lumbar spine, with spinal canal and neuroforaminal narrowing . Trial of Lumbar epidural steroid injections under fluroscopic guidance was recommended. The risks and benefits of the procedure were discussed in detail. She wishes to proceed. She is doing well after an oral steroid dose pack and currently has minimal pain, She will call for an appointment. She needs a local company intermodal truck driver on the day of the procedure. [email or web address] Not available 10/13/2015 20:39:53 Plan of Treatment Reminders Order Date Submit Date Provider Last Modified By Organization Details Last Modified Time Details Appointments None record ed. Lab None record ed. Referral None record ed. Procedures None record ed. Surgeries None record ed. Imaging None record ed. Medication Orders None record ed. Patient TargetsNo targets recorded. Patient Instructions Encounter Date Encounter Id Patient Instructions Last Modified By Organization Details Last Modified Time 10/12/2015 [id number] She was advised against bed rest lasting longer than four days and to continue activities as tolerated. [email or web address] Not available 10/12/2015 11:39:01 Reason for Referral None Reported. Problems Name Problem SNOMED Code Status Onset Date Resolution Date Notes Provider Name and Address Organization Details Recorded Time Spinal stenosis of lumbar region 24975540 Active Wilman quan MD [address] , [address], [place], [address], [place] [facility] 6 20:39:53 Displacement of lumbar intervertebral disc without myelopathy 78760359 Active Wilman quan MD [address] [facility] , [address], [facility] [place], [address], [place] [facility] 6 20:39:53 Lumbosacral spondylosis without myelopathy 86530207 Active Wilman quan MD [address] [facility] , [address], [facility] [place], [address], [place] [facility] 6 20:39:53 Lumbosacral radiculitis 49083104 Active Wilman quan MD [address] [facility] , [address], [facility] [place], [address], [place] [facility] 6 20:39:53 Problem Notes None recorded. Procedures Surgical History Date Name Laterality Status Provider Name and Address Organization Details Recorded Time Cancer Surgery completed Mirta Bejarano A - [facility] 10/12/2015 10:42:21 Hysterectomy completed Mirta Pavon [place] - [facility] 10/12/2015 10:42:21 Appendectomy completed Mirta Pavon [place] - [facility] 10/12/2015 10:42:21 Cataract Surgery completed Mirta Pavon [place] - [facility] 10/12/2015 10:42:21 Carpal tunnel release completed Mirta Pavon [place] - [facility] 10/12/2015 10:42:21 Imaging Results None recorded. Procedure Notes None recorded. Medical Equipment None Reported. Allergies Allergen ID Allergen Name Allergen Category Reaction Reaction Severity Criticality Documentation Date Start Date Code Code System Note Provider Name and Address Organization Details Recorded Time 20820 lisinopri l medicatio n cough Not available Not available 10/12/2015 79054 RxNorm Mirta hawkins [place] - [facility] 6 10:42:21 Medications Name Sig Start Date Stop Date Status Note LastModified by Organization Details LastModified Time polyethylene glycol 3350 17 gram oral powder packet Take 1 packet every day by oral route. active Not Available Not Available No t Available chlorthalidone 25 mg tablet Take 1 tablet every day by oral route. active Not Available Not Available No t Available amlodipine 5 mg tablet Take 1 tablet every day by oral route. active Not Available Not Available No t Available tramadol 50 mg tablet Take 1 tablet every 6 hours by oral route. active Not Available Not Available No t Available citalopram 20 mg tablet Take 1 tablet every day by oral route. active Not Available Not Available No t Available simvastatin 20 mg tablet Take 1 tablet every day by oral route. active Not Available Not Available No t Available nortriptyline 10 mg capsule daily active Not Available Not Availabl e Not Available raloxifene 60 mg tablet Take 1 tablet every day by oral route. active Not Available Not Available No t Available ranitidine 150 mg capsule Take 1 capsule twice a day by oral route. active Not Available Not Available No t Available hydrochlorothia zide 25 mg tablet Take 1 tablet every day by oral route. active Not Available Not Available No t Available atenolol 50 mg tablet Take 1 tablet every day by oral route. active Not Available Not Available No t Available Asprin Ec Low Dose 81 mg tablet,delayed release Take 1 tablet every day by oral route. active Not Available Not Available No t Available folic acid active Not Available Not Av ailable Not Available potassium 10 meq daily active Not Available Not Available No t Available Stool Softener active Not Available No t Available Not Available Centrum Silver active Not Available No t Available Not Available Calcium 600 + D(3) 3 tabs daily active Not Available Not Available No t Available Vitals Date Recorded Body mass index (BMI) Body height Oxygen saturation Body weight Heart rate Systolic And Diastolic Provider Name and Address Organization Details Last Updated DateTime 6 21.9 kg/m2 147.32 cm 99 % 81064.1 9885 g 63 /min 159/71 mm[Hg] Mirta Pavon [place] - [facility] 6 10:42:21 Social History Question Answer Notes LastModified by Organizat ion Details LastModified Time Tobacco Smoking Status Never Smoker Not Available [employer] 12/12/2019 03:16:10 Which Illicit Or Recreational Drugs Have You Used? No [id number] Information not available 12/12/2019 Education 12 Information no t available 10/12/2015 Live Alone Or With Others? Alone Information not available 10/12/2015 Marital Status Informatio n not available 10/12/2015 Sex: Unknown Functional Status Question Answer Note LastModified by Organization D etails LastModified Time What is your level of alcohol consumption? None [id number] Information not available 12/12/2019 Are you currently employed? No [id number] Information not available 12/12/2019 Mental Status None recorded. Family History Relationship Description Onset Age of this Age Resolved Age Notes LastModified by Organization Details LastModified Time Father Diabetes mellitus [email or web address] Not available 09/26 11:30:49 Medical History Condition Response Headache Y Cancer Y Arthritis Y Hypertension Y High Cholesterol Y Gynecological HistoryNo gynecological history recorded. Obstetrics History GPAL:G 0 P 0 0 0 0 Past Encounters Encounter ID Performer Location Encounter Start Date Encounter Closed Date Diagnosis/Indication Diagnosis SNOMED-CT Code Diagnosis ICD10 Code Diagnosis IMO Codes Diagnosis Note [id number] Wilman Morris MD PAIN OFFICE [address] [place] [phone] 10/12/2015 10:14:36 10/12/2015 11:39:26 Displacement of lumbar intervertebral disc without myelopathy 03283630 M51.26 Lumbosacra l radiculitis 22389463 M54.17 Lumbosacra l spondylosis without myelopathy 88994375 M47.817 Spinal cuong nosis of lumbar region 24874889 M48.06 Health Concerns Section Related Observation LastModified by Organization Detai ls LastModified Time None Recorded Concern Status LastModified by Organization Details LastModified Time None Recorded Advance Directives Directive None Recorded Payers Insurance Date Sequence Insurance Name Policy Number Policy Crane Covered Member ID Crane Member ID Guarantor Name 10/12/2015 1 [facility] (MEDICARE - MEDICAID REPLACEMENT) Bernadette Cruz [id number] Bernadette Cruz 10/12/2015 1 [facility] - MEDICARE PREFERRED (MEDICARE REPLACEMENT HMO) [id number] Bernadette Cruz [id number] Bernadette Cruz Notes Date Note Type Note Provider Name and Address Organization Details Recorded Time 6 text/html Pain Management L-spineReported by PatientHPIFor quality, patient reportsthrobbing,numbess ,burning,aching,sharp, andtingling(she describes the pain as starting in her low back and then primarily in her right leg . the pain in her leg was burning in nature and associated with numbness and tingling. her pcp started her on a medrol dose pack and she states she has no pain today.). For associated symptoms, patient reportsnumbnessbut reportsno weakness,no bladder compromise, andno bowel compromise. For severity, patient reportsimproving,current pain level 0-1/10, andworst pain 8/10. For duration, patient reportsconstant. For onset/timing, patient reportschronic. For context, patient reportslifting. For alleviating factors, patient reportsrestandlying down. For aggravating factors, patient reportsstandingandwalkin g(history of neuroclaudication is present.). For radiation, patient reportsright le. For work related, patient reportsno. For adl (activities of daily living), patient reportswalking,sweeping, andmopping(she lives in her condo and has a stair lift.). For prior imaging, patient reportsmri. For prior emg, patient reportsnone. For previous surgery, patient reportsnone. For previous pt, patient reportsdid not help. For previous career development coordinator, patient reportsnone. For location, (bernadette cruz is a 75 year old woman with complaints of low back pain radiating into right lower extremity. she has herb having low back pain since . she had a recent exacerbation 3-4 months ago. she feels she was carrying soil for her garden which may have caused the reoccurence of her pain.). For previous injections, (she states she had an injection with dr. armando and feels it did not help her.). She is doing a home exercise exercise program. She had good response to oral steroids. She states she had a fall in 2011 and sustained a compression fracture of L1 vertebra. Wilman Morris MD [address] [place] [address] , [address], [place], [address], [place] [facility] 10/18/2015 15:31:24 OBGyn Episode No OBEpisode recorded.
--- OUTSIDE RECORDS SUMMARY | 2025-02-23 15:22 | XMS_ITS | Encounter Summary ---
Author Organization [facility] [place] [address] Care Team Providers Care Search Strategist Name Role Phone Zoila Gunter MD Primary Care Prov ider Reason for Visit * Reason Onset Date Comments Referral 01/01/2025 Encounter Details Date Type Department Care Team (Late st Contact Info) Description 01/01/2025 Telephone Adult Medicine [address] [phone] Zoila Gunter MD [address] [place] [address] Social History Tobacco Use Types Packs/Day Years Used Date Smoking Tobacco: Never Smokeless Tobacco: Never Alcohol Use Standard Drinks/Week Comments No 0 [...] your loved ones. For example, child care supervisor or elderly care for an older adult? [...] on file Sexual Orientation Not on file documented as of this encounter Functional Status * Are you deaf or do you have serious difficulty hearing? Answer Date of Assessment Author No 06/24/2024 12:00 AM Sary Bernal, SHEILA * Are you blind or do you have serious difficulty seeing, even when wearing glasses? Answer Date of Assessment Author No 06/24/2024 12:00 AM Sary Bernal RN * Do you have serious difficulty walking or climbing stairs? Answer Date of Assessment Author No 06/24/2024 12:00 AM Sary Bernal RN * Do you have serious difficulty dressing or bathing? Answer Date of Assessment Author No 06/24/2024 12:00 AM Sary Bernal RN * Because of a physical, mental, or emotional condition, do you have serious difficulty doing errandsalone such as visiting the doctor? Answer Date of Assessment Author No 06/24/2024 12:00 AM Sary Bernal RN documented as of this encounter Mental Status * Because of a physical, mental, or emotional condition, do you have serious difficulty concentrating, remembering, or making decisions? (5 years old or older) Answer Entry Date Author No 06/24/2024 12:00 AM Sary Bernal RN documented in this encounter Progress Notes * Anne Stewart RN - 01/02/2025 9:42 AM EST Spoke with the daughter and advised that she needs to contact the insurance to find out who in the area takes ins. * Zoila Gunter MD - 01/01/2025 4:39 PM EST Patient needs to contact her insurance and let me know what provider she wants to see * Magalys Patel RN - 01/01/2025 11:14 AM EST Spoke with [facility] does not accept her insurance , she will need new referral Sending new referral request to PCP * Magalys Patel RN - 01/01/2025 11:08 AM EST Called referrals department to review, spoke with Sosa , [place] [facility] [place] and [place] the pt.. She will reach back to office if new referral needed * Radha Oakes - 01/01/2025 10:32 AM EST Patient was referred to [facility] but they are not taking her insurance. Referral Request: What insurance does the patient have today? [facility] Medicare Advantage [id number] Referrals cannot be processed if the insurance is not accurate. If the insurance listed above in red is NO BILLING INFORMATION FOUND FOR THIS ENCOUTNER The patients correct insurance must be obtained and registered in [facility] or their referral can not be processed. Who is calling to request this referral? Daughter, Rose If the caller is not the patient, what is their name? Rose Ask the patient WHO referred them to this specialty: Patient self referred patient was referred to [facility] and they told daughter they are not taking the patient's insurance. FIRST and LAST NAME of SPECIALIST PATIENT is seeing: Chelle BELTRE What specialty is this? OBGYN DIAGNOSIS Patient is being seen for (Not a body part or a procedure): N94.89 (ICD-10-CM) - Adnexal mass Have you seen this SPECIALIST for this PROBLEM/DX before? If YES, when? No Have you checked REVIEW or the APPT DESK to see if this referral has already been done or has visits left? yes Is this visit: Initial Visit Address of Specialist: [address] [place] [id number] Phone # of Specialist: [phone] Fax #: (if applicable): [phone] Does patient have an appointment scheduled?: no Date of appointment- (including a retro-request): TBD Is this appointment related to: Not MVA, worker compensation, or surgery related documented in this encounter Plan of Treatment Upcoming Encounters Date Type Department Care Team (Late st Contact Info) Description 06/15/2025 1:00 PM EDT Office Visit Adult Medicine [facility] [address], [place] [phone] Leena Martin PA [address], [place] 08/06/2025 11:00 AM EDT Office Visit Orthopedic Surgery - [place] [id number] [phone] Hernandez Vanegas MD [address] [phone] documented as of this encounter Visit Diagnoses Not on filedocumented in this encounter Additional Health Concerns Assessment Noted Time PHQ-9 Depression Total Score: 0 12/16/19 12:19 PM EDT A fall risk assessment has been complete d for the patient 12/15/2024 12:17 PM EDT documented as of this encounter Care Teams Search Strategist Relationship Specialty Start Date End Date Zoila Gunter MD [address] [place] [address] PCP - General Internal Medicine 09/26/21 documented as of this encounter
== END 2025-02-23 13:43 | disposition home or self-care (01) ==
LOC: HO.HSM 13:19
PROVIDERS: PCP Internal Medicine; Visit Provider Registered Nurse
DX: G31.84 Mild cognitive impairment of uncertain or unknown etiology (principal)
CPT/HCPCS: 99214

== ENCOUNTER → 2025-02-23 13:19 | Outpatient (BNVA) | payer MEDICARE, SELFPAY | PROVIDERS: PCP Internal Medicine; Visit Provider Registered Nurse | DX: G31.84 Mild cognitive impairment of uncertain or unknown etiology (principal); Z79.899 Other long term (current) drug therapy | CPT/HCPCS: 99212 ==